=== PATIENT | male | born 1980 | race Two or more races ===

== ENCOUNTER 2017-07-25 14:18 | Emergency (ER) | payer MEDICAID ==
[~2017-07-25] VITALS: Ht 170.2 cm; Wt 129.3 kg
[2017-07-25 14:25] VITALS: BP 153/85
--- NOTE | 2017-07-25 16:32 | NUR ---
PT ESCORTED OUT BY SECURITY. PER JM TURNER PT "LUNGED AT HER" AND PT STATED "GET OUT OF MY BRAIN". Patient left without being treated by JM Turner.
== END 2017-07-25 16:38 | disposition left against medical advice (07) ==
LOC: ER 14:19
DX: F22 Delusional disorders (principal); E66.01 Morbid (severe) obesity due to excess calories; F91.1 Conduct disorder, childhood-onset type; E11.9 Type 2 diabetes mellitus without complications
CPT/HCPCS: A4606; Z7610

== ENCOUNTER 2017-08-05 08:51 | Emergency (ER) | payer MEDICAID ==
[~2017-08-05] VITALS: Ht 180.3 cm; Wt 90.7 kg
[2017-08-05 09:07] VITALS: BP 148/82
== END 2017-08-05 11:03 | disposition home or self-care (01) ==
LOC: ER 08:52
DX: J06.9 Acute upper respiratory infection, unspecified (principal)
CPT/HCPCS: A4606; Z7502; Z7610

== ENCOUNTER 2017-08-11 00:39 | Emergency (ER) | payer MEDICAID ==
[~2017-08-11] VITALS: Ht 185.4 cm; Wt 154.2 kg
[2017-08-11 00:44] VITALS: BP 118/69
[2017-08-11] MEDS ORDERED: IBUPROFEN 400 MG TABLET ONE (00:53)
[2017-08-11] MEDS ORDERED: IBUPROFEN 400 MG TABLET PO ONE (01:00)
== END 2017-08-11 00:55 | disposition home or self-care (01) ==
LOC: ER 00:40
DX: Z00.8 Encounter for other general examination (principal); M79.671 Pain in right foot; M79.672 Pain in left foot; E11.9 Type 2 diabetes mellitus without complications
CPT/HCPCS: A4606; Z7610

== ENCOUNTER 2017-08-13 15:56 | Emergency (ER) | payer MEDICAID ==
[~2017-08-13] VITALS: Ht 177.8 cm; Wt 136.1 kg
[2017-08-13 15:56] VITALS: BP 146/82
[2017-08-13] MEDS ORDERED: ACETAMINOPHEN 325 MG TABLET PO ONE (17:30)
[2017-08-13 17:41] LABS: BASOPHILS % (AUTO) 0.7 % (0.0-2.0); EOSINOPHILS % (AUTO) 4.1 % (0.0-6.0); HEMATOCRIT 39 % (39-51); HEMOGLOBIN 13.2 g/dL (13.5-17.5); LYMPHOCYTES # (AUTO) 2.9 /CMM (0.8-4.8); LYMPHOCYTES % (AUTO) 41.4 % (20.0-44.0); MEAN CORPUSCULAR HGB CONC 34 g/dl (31.0-36.0); MEAN CORPUSCULAR VOLUME 88 fL (80-96); MONOCYTES # (AUTO) 0.6 /CMM (0.1-1.30); MONOCYTES % (AUTO) 8.5 % (2.0-12.0); NEUTROPHILS # (AUTO) 3.2 /CMM (1.8-8.9); NEUTROPHILS % (AUTO) 45.3 % (43.0-81.0); PLATELET COUNT (AUTO) 377 /CMM (150-450); RDW COEFFICIENT OF VARIATION 13.5 (11.5-15.0)
[2017-08-13] MEDS ORDERED: ACETAMINOPHEN ES 500 MG TABLET ONE (17:45)
[2017-08-13 17:50] LABS: CALCIUM, SERUM 9.2 mg/dL (8.5-10.1); POTASSIUM 4.2 mmol/L (3.5-5.1)
[2017-08-13 17:56] LABS: ALBUMIN 3.6 g/dL (3.4-5.0); BILIRUBIN,DIRECT 0.1 mg/dL (0.0-0.2); BILIRUBIN,TOTAL 0.4 mg/dL (0.2-1.0); TOTAL PROTEIN, SERUM 8.1 g/dL (6.4-8.2)
[2017-08-13 17:57] LABS: INR 0.97 (0.87-1.13)
[2017-08-13 18:51] LABS: APPEARANCE,URINE Clear (CLEAR); BILIRUBIN,URINE Negative (NEGATIVE); BLOOD, URINE Negative Ery/uL (NEGATIVE); COLOR,URINE Yellow (YELLOW); KETONES,URINE Negative (NEGATIVE); LEUKOCYTE ESTERASE ,URINE Negative (NEGATIVE); NITRITE, URINE Negative (NEGATIVE); PH,URINE 5.5 (5.0-8.0); PROTEIN,URINE Trace mg/dl (NEGATIVE); UGLUCOSE Negative (NEGATIVE); UROBILINOGEN,URINE 0.2 EU/dL (0.2)
[2017-08-13 19:02] LABS: BACTERIA,URINE Few /HPF (None Seen); RBC,URINE 0-2 /HPF (0-2); SQUAMOUS EPITHELIAL CELL,UR Few /HPF (None Seen); WBC,URINE 21-50 /HPF (0-3)
[2017-08-13 19:13] LABS: CREATINE KINASE MB 0.6 ng/mL (0-3.6)
[2017-08-13] MEDS ORDERED: CEFTRIAXONE 1 G VIAL ONE (19:24)
[2017-08-13] MEDS ORDERED: LIDOCAINE 1% INJ 50 ML MDV IJ ONE (19:24)
[2017-08-13] MEDS ORDERED: CEFTRIAXONE 1 G VIAL IM ONE (19:30)
== END 2017-08-13 19:35 | disposition home or self-care (01) ==
LOC: ER 15:57
DX: M79.662 Pain in left lower leg (principal); M79.661 Pain in right lower leg; N39.0 Urinary tract infection, site not specified; E11.9 Type 2 diabetes mellitus without complications; I10 Essential (primary) hypertension
CPT/HCPCS: 36415; 71045; 80048; 80076; 81001; 82550; 82553; 83880; 85025; 85730; 87086; 96372; 99285; A4606; J0696; J3490; Z7610; 81000-TC